=== PATIENT | female | born 1990 | race Caucasian/White ===

== ENCOUNTER 2018-01-25 14:10 | Outpatient (CLI) | payer BC ==
--- NOTE | 2018-01-25 17:30 | ULT ---
LIMITED LEFT BREAST ULTRASOUND: Date: 01-25-18 Provided Clinical History: Left breast palpable abnormality. FINDINGS: Limited sonographic interrogation is performed of the left breast in the region of palpable concern. The sonographic appearance of the breast tissue in this region is normal. IMPRESSION: No sonographic abnormality to correspond to the reported palpable abnormality. Negative imaging findi ngs should not preclude further evaluation of a clinically suspicious area. The patient was referred back to her physician. POS: OFF
== END 2018-01-25 14:11 | disposition home or self-care (01) ==
LOC: BICULT 14:10
PROVIDERS: ATTEND Nurse Practitioner
DX: N60.11 Diffuse cystic mastopathy of right breast (principal); N60.12 Diffuse cystic mastopathy of left breast